=== PATIENT | female | born 1965 ===

== ENCOUNTER 2017-03-28 18:34 | Inpatient (IN) | payer MEDICAID ==
[2017-03-28] MEDS ORDERED: ONDANSETRON 4 MG/2 ML VIAL IVP STA (19:04)
[2017-03-28] MEDS ORDERED: SODIUM CHLORIDE 0.9% 1,000 ML IV ONE ×3 (19:04→20:46)
[2017-03-28] MEDS ORDERED: HYDROmorphone 1 MG/ML SYRINGE IVP STA ×3 (19:04→20:16)
--- NOTE | 2017-03-28 19:09 | ED Physician Documentation ---
History of Present Illness - Stated complaint Stated Complaint: LOW BACK/ABD PX - Chief complaint Chief Complaint: General - History obtained from History obtained from: Patient - History of Present Illness Timing: How many days ago (3) Pain level max: 10 Pain level now: 10 Improved by: nothing Worsened by: movement, palpation - Additonal information Additional information: Patient is a 51-year-old female who presents to the emergency department with abdominal pain, worsening for the past 2-3 days. Describes it as generalized abdominal pain with increased swelling, unable to eat today. Pain severely increased over the past 24 hours. Has no other past medical history other than a oophrectomy. No home medications Review of Systems Ten Systems: 10 systems reviewed and negative Constitutional: denies: Fever, Chills Ears: denies: Ear pain Nose: denies: Rhinorrhea / runny nose, Congestion Throat: denies: Sore throat Cardiac: denies: Chest pain / pressure Respiratory: denies: Cough GI: denies: Nausea, Vomiting, Diarrhea Skin: denies: Rash Musculoskeletal: reports: Back pain (L back pain). denies: Neck pain Neurologic: denies: Generalized weakness, Focal weakness PD PAST MEDICAL HISTORY - Past Medical History Past Medical History: No - Past Surgical History Past Surgical History: Yes Other past surgical history: oopherectomy - Present Medications Home Medications: Ambulatory Orders Medication Instructions Recorded Confirmed No Known Home Medications [No 03/28/17 03/28/17 Known Home Medications] - Allergies Allergies/Adverse Reactions: Allergies Allergy/AdvReac Type Severity Reaction Status Date / Time No Known Drug Allergies Allergy Verified 03/28/17 18:53 - Living Situation Living Situation: reports: With family Living Arrangement: reports: At home - Social History Does the pt smoke?: Yes Does the pt drink ETOH?: Yes Does the pt have substance abuse?: Yes Substance Use and Type: Marijuana PD ED PE NORMAL - Vitals Vital signs reviewed: Yes - General General: Alert and oriented X 3, Other (appears in severe pain) - HEENT HEENT: Moist mucous membranes - Neck Neck: Supple, no meningeal sign - Cardiac Cardiac: RRR, Strong equal pulses - Respiratory Respiratory: No respiratory distress, Clear bilaterally - Abdomen Abdomen: Other (distended, firm. peritoneal) - Back Back: No spinal TTP - Derm Derm: Warm and dry - Neuro Neuro: Alert and oriented X 3 Results - Vitals Vitals: Vital Signs - 24 hr 03/28/17 03/28/17 03/28/17 18:49 20:19 22:15 Temperature 36.5 C Heart Rate 84 85 Respiratory 21 19 Rate Blood Pressure 103/54 L 115/80 O2 Saturation 100 96 100 03/28/17 03/28/17 22:20 22:25 Temperature Heart Rate Respiratory Rate Blood Pressure O2 Saturation 100 100 Oxygen O2 Source Room air - Labs Labs: Laboratory Tests 03/28/17 03/28/17 03/28/17 19:10 19:10 19:10 WBC 9.3 RBC 4.00 L Hgb 11.6 L Hct 35.1 L MCV 87.8 MCH 29.1 MCHC 33.1 RDW 14.3 Plt Count 497 H MPV 8.8 Neut # 5.6 Lymph # 2.3 Dunn # 1.0 Eos # 0.3 Baso # 0.1 Absolute Nucleated RBC 0.00 Nucleated RBC % 0.0 Sodium 136 Potassium 3.8 Chloride 106 Carbon Dioxide 25 Anion Gap 5.0 L BUN 17 Creatinine 0.6 Estimated GFR (MDRD) 105 Glucose 114 H Calcium 8.8 Total Bilirubin 0.4 AST 16 ALT 11 Alkaline Phosphatase 59 Total Protein 7.5 Albumin 3.7 Globulin 3.8 Albumin/Globulin Ratio 1.0 Lipase 12 L CA 125 Antigen 50.8 H Blood Type Antibody Screen 03/28/17 20:00 WBC RBC Hgb Hct MCV MCH MCHC RDW Plt Count MPV Neut # Lymph # Dunn # Eos # Baso # Absolute Nucleated RBC Nucleated RBC % Sodium Potassium Chloride Carbon Dioxide Anion Gap BUN Creatinine Estimated GFR (MDRD) Glucose Calcium Total Bilirubin AST ALT Alkaline Phosphatase Total Protein Albumin Globulin Albumin/Globulin Ratio Lipase CA 125 Antigen Blood Type O POSITIVE Antibody Screen NEGATIVE - Rads (name of study) CT abd/pelvis Radiology: Prelim report reviewed, EMP read contemporaneously, See rad report ( Large well-defined 20.8 x 10.7 x 24.2 cm fluid collection with thin internal septations, likely left ovarian origin. Mild atherosclerotic calcification. Otherwise unremarkable abdomen and pelvis CT. ) PD MEDICAL DECISION MAKING - ED course Complexity details: reviewed results, re-evaluated patient, considered differential, d/w patient, d/w marketing sales consultant ([id number] - Dr. Bah.) ED course: Patient is a 51-year-old female who presents to the emergency department with a 3 day onset of abdominal pain and swelling, worsened suddenly today. She is peritoneal on exam and so surgery was consulted immediately upon arrival to the emergency department. A CT scan was performed which shows a large cystic mass, likely ovarian in origin. She originally said that she had both of her ovaries removed, but appears that a portion of the left ovary was left behind. Pain is well controlled, will take the patient to the operating room with Dr. Bah for further care. This document was made in part using voice recognition software. While efforts are made to proofread this document, sound alike and grammatical errors may occur. Departure - Departure Disposition: ED Transfer to [facility] Clinical Impression: Peritonitis (acute) generalized, Cyst Condition: Stable Discharge Date/Time: 03/28/17 20:50
[2017-03-28] MEDS ORDERED: IOPAMIDOL-300 100 ML VIAL ONE (19:19)
[2017-03-28 19:24] LABS: BASOPHILS # (AUTO) 0.1 10^3/uL (0.0-0.1); BASOPHILS % (AUTO) 1.1 %; EOSINOPHILS # (AUTO) 0.3 10^3/uL (0.0-0.7); EOSINOPHILS % (AUTO) 3.2 %; HGB - HEMOGLOBIN 11.6 g/dL (12.0-16.0); LYMPHOCYTES # (AUTO) 2.3 10^3/uL (1.5-3.5); LYMPHOCYTES % (AUTO) 24.6 %; MEAN CORPUSCULAR HEMOGLOBIN 29.1 pg (27.0-31.0); MEAN CORPUSCULAR HGB CONC 33.1 g/dL (32.0-36.0); MEAN CORPUSCULAR VOLUME 87.8 fL (81.0-99.0); MEAN PLATELET VOLUME 8.8 fL (7.9-10.8); MONOCYTES % (AUTO) 10.6 %; NEUTROPHILS # (AUTO) 5.6 10^3/uL (1.5-6.6); NEUTROPHILS % (AUTO) 60.5 %; PLT - PLATELET COUNT 497 10^3/uL (130-450); RED CELL DISTRIBUTION WIDTH 14.3 % (12.0-15.0); WHITE BLOOD COUNT 9.3 x10^3/uL (4.8-10.8)
[2017-03-28] MEDS ORDERED: metroNIDAZOLE 500 MG/100 ML 500 MG/100 ML BAG IV ONE (19:24)
[2017-03-28] MEDS ORDERED: PIPERACILLIN/TAZOBACTAM 4.5 GM in SODIUM CHLORIDE 0.9% MINIBAG 100 ML IV STA (19:24)
[2017-03-28 19:31] LABS: ALBUMIN 3.7 g/dL (3.2-5.5); BILIRUBIN,TOTAL 0.4 mg/dL (0.2-1.0); CALCIUM 8.8 mg/dL (8.5-10.3); CREATININE 0.6 mg/dL (0.4-1.0); TOTAL PROTEIN 7.5 g/dL (6.7-8.2)
--- NOTE | 2017-03-28 19:49 | CT Report ---
EXAM: CT ABDOMEN AND PELVIS EXAM DATE: 03/28/2017 07:38 PM. CLINICAL HISTORY: Abdomen pain and swelling for 3 days. COMPARISONS: None. TECHNIQUE: Routine helical CT imaging was performed through the abdomen and pelvis. IV contrast: 100 cc of Isovue-300. Enteric contrast: No. Reconstructions: Coronal and sagittal. In accordance with CT protocol optimization, one or more of the following dose reduction techniques w ere utilized for this exam: automated exposure control, adjustment of mA and/or KV based on patient s ize, or use of iterative reconstructive technique. FINDINGS: Lung Bases: Unremarkable. Liver: Normal. No masses. Gallbladder/Bile Ducts: Unremarkable. Spleen: Normal. Pancreas: Normal. Adrenal Glands: Normal. Kidneys: Normal. No masses or hydronephrosis. Peritoneal Cavity/Bowel: Normal. No free fluid, free air or adenopathy. No masses or acute inflammato ry process. Pelvic Organs: Large well-defined fluid collection on 20.8 x 10.7 x 24.2 cm with thin internal septat ions, likely left ovary in origin. Otherwise the reproductive organs and bladder appear unremarkable. Vasculature: No aortic aneurysm. Mild atherosclerotic calcification. Bones: No significant abnormality. Other: None. IMPRESSION: Large well-defined 20.8 x 10.7 x 24.2 cm fluid collection with thin internal septations, likely left ovarian origin. Mild atherosclerotic calcification. Otherwise unremarkable abdomen and pe lvis CT. [facility] Referring Provider Line: [phone] SITE ID: [id number]
[2017-03-28] MEDS ORDERED: IOPAMIDOL-300 100 ML VIAL IVP ONE (19:59)
[2017-03-28] MEDS ORDERED: HYDROmorphone 1 MG/ML SYRINGE ONE (20:24)
[2017-03-28] MEDS ORDERED: PHENYLEPHRINE 50 MG/5 ML VIAL IV ONE (21:15)
[2017-03-28] MEDS ORDERED: MIDAZOLAM 2 MG/2 ML VIAL IVP ONE (21:15)
[2017-03-28] MEDS ORDERED: LIDOCAINE-MPF 2% 5 ML VIAL IM ONE (21:15)
[2017-03-28] MEDS ORDERED: PROPOFOL 200 MG/20 ML VIAL IVP ONE (21:15)
[2017-03-28] MEDS ORDERED: fentaNYL 100 MCG/2 ML VIAL IVP ONE (21:15)
[2017-03-28] MEDS ORDERED: ROCURONIUM 50 MG/5 ML VIAL IVP ONE (21:15)
[2017-03-28] MEDS ORDERED: GLYCOPYRROLATE 1 MG/5 ML VIAL IVP ONE (21:15)
[2017-03-28] MEDS ORDERED: ONDANSETRON 4 MG/2 ML VIAL IVP ONE (21:15)
[2017-03-28] MEDS ORDERED: DEXAMETHASONE 4 MG/ML VIAL IVP ONE (21:15)
[2017-03-28] MEDS ORDERED: NEOSTIGMINE 1 MG/1 ML 10 ML MDV IVP ONE (21:15)
[2017-03-28] MEDS ORDERED: BUPIVACAINE 0.5% PF 30 ML VIAL SUBQ ONE (21:34)
[2017-03-28] MEDS ORDERED: LACTATED RINGERS 1,000 ML IV ONE ×2 (21:45→22:14)
--- NOTE | 2017-03-28 22:11 | CONSULTATION NOTE ---
Referring Provider Name of Referring Provider:: Momo Camara Consult Date: 03/28/17 Chief Complaint - Chief Complaint Chief Complaint: Dr. Shaan Manzano called me urgently to evaluate this 51-year- old female w History of Present Illness - Admitted From Admitted From:: Emergency department - History Obtained From Records Reviewed: Yes History obtained from: Patient and Exam Limitations: The degree of pain the patient is in History - Past Medical History Cardiovascular: reports: None Respiratory: reports: None, Other (Patient is a smoker and is likely to have some COPD) Neuro: reports: None Endocrine/Autoimmune: reports: None GI: reports: None FIRE CONTROL OFFICER: reports: None (Menopause 3 years ago) : reports: None HEENT: reports: None Psych: reports: None Musculoskeletal: reports: None Derm: reports: None - Past Surgical History /FIRE CONTROL OFFICER: reports: Oophrectomy Other past surgical history: oopherectomy - Family & Social History Living arrangement: At home Living Situation: With family Meds/Allgy - Home Medications Home Medications: Ambulatory Orders Medication Instructions Recorded Confirmed No Known Home Medications [No 03/28/17 03/28/17 Known Home Medications] - Allergies Allergies/Adverse Reactions: Allergies Allergy/AdvReac Type Severity Reaction Status Date / Time No Known Drug Allergies Allergy Verified 03/28/17 18:53 Review of Systems - Constitutional Constitutional: denies: Fatigue, Fever, Chills, Malaise, Weight gain, Weight loss - Eyes Eyes: denies: Vision loss - Ears, Nose & Throat Ears, Nose & Throat: denies: Hearing loss, Hearing aids, Sore throat - Cardiovascular Cariovascular: denies: Irregular heart rate, Chest pain - Respiratory Respiratory: reports: Cough. denies: Hemoptysis - Gastrointestinal Gastrointestinal: reports: Abdominal pain, Abdominal distention, Constipation, Change in bowel habits. denies: Black stools, Bloody stools, Yony blood emesis - Genitourinary Genitourinary: denies: Incontinence - Musculoskeletal Musculoskeletal: denies: Muscle pain, Back pain - Integumentary Integumentary: denies: Rash - Neurological Neurological: denies: General weakness, Focal weakness, Headache, Dizziness - Psychiatric Psychiatric: denies: Depression, Anxiety, Suicidal, Delusions, Hallucinations, Homicidal Exam - Vital Signs Reviewed Vital Signs: Yes Vital Signs: Vital Signs x48h Temp Pulse Resp BP Pulse Ox 03/28/17 20:19 85 19 115/80 96 03/28/17 18:49 36.5 C 84 21 103/54 L 100 - Physical Exam General Appearance: positive: Moderate distress (Due to abdominal pain), Severe distress Eyes Bilateral: positive: No lid inflammation, Conjunctivae nml, No scleral icterus Neck: positive: Trachea midline Respiratory: positive: Chest non-tender, No respiratory distress, Breath sounds nml Cardiovascular: positive: Regular rate & rhythm, Tachycardia Abdomen: positive: Tenderness (Severe and throughout), Other (Market distention going from the pelvis to shelter between the umbilicus and the xiphoid process, firm to touch) Skin: positive: Pallor Extremities: positive: Non-tender, Nml appearance Neurologic/Psychiatric: positive: Oriented x3 Conclusion/Plan - Diagnosis Diagnosis: Extraordinarily large abdominal mass likely to be ovarian after review of CT scan and labs - Plan Plan: Exploratory laparotomy with removal of large abdominal mass. I explained to the patient and her that this mass likely represents an ovarian mass and she indicated that she would like to have it removed. In fact, she stated and her confirmed that if anything else needed to be removed at that time it should be removed at that time. A CA 125 has been ordered as large ovarian cysts in postmenopausal women have increased risk for malignancy. Depending on its appearance may intraoperatively consult Dr. Keyla Warner for her expertise. The patient will be made n.p.o., receive preoperative antibiotics, have teds and Venodyne's placed, have at least one running IV, and be typed and screened just in case there is an issue with bleeding. 45 minutes of [id number] time was spent with the patient and in coordinating her care as well as completing this paperwork. - Lab Results Lab results reviewed: Yes Fish Bones: 03/28/17 19:10 03/28/17 19:10 - Diagnostic Imaging Results Diagnostic Imaging Results: positive: Prelim report reviewed, Final report reviewed, Read independently
--- NOTE | 2017-03-28 22:15 | OPERATIVE REPORT ---
Operative Report - Other Other Information/Narrative: Date of Operation: 03/28/2017 Surgeon: Keyla Velarde DO FACOG Co-Surgeon: Jairo Bah MD [facility] Machine Shorthand Reporter: Devon Valencia CRNA Anesthesia: GET Pre-op Dx: Pelvic mass Post-op Dx: Left ovarian mass Procedure: 1. Exploratory laparotomy 2. Excision of left ovarian cyst 3. Abdominal Hysterectomy Findings: Enlarged left ovarian mass. Normal uterus. Surgically absent right ovary and fallopian tube. Specimens: 1. Pelvic washings 2. Left ovarian mass 3. Uterus Drains: Thayer catheter to gravity EBL: <10 mL Complications: None Dictation: [id number]
--- NOTE | 2017-03-28 22:22 | OPERATIVE REPORT ---
Operative Report - General Admit Date: 03/28/17 Planned Procedure: Exploratory laparotomy with excision of large abdominal mass Pre-Op Diagnosis: Large abdominal mass (likely cystic) Procedure Performed: Exploratory laparotomy with left ovarian cystectomy (extremely large3.8 kg), intraoperative consultation of Dr. Keyla Warner, peritoneal washings, hysterectomy (performed by Dr. Keyla Warner and reported separately) Post Op Diagnosis: Extremely large left ovarian cyst in a postmenopausal woman - Procedure Note Primary Surgeon: Jairo Bah MD Secondary Surgeon: Keyla Nieto MD Anesthesia Provider: Devon Valencia Anesthesia Technique: General ET tube, Local (30 mL of half percent Marcaine) Pathology: Large left ovarian cyst and uterus sent for pathologic evaluation Peritoneal washings sent for pathologic evaluation IV Fluids (mL): 1,500 Estimated Blood Loss (mL): 150 Urine Output (mL): 150 - Other Other Information/Narrative: OPERATIVE DESCRIPTION/REPORT: After verbal and written informed consent was obtained detailing the risks of infection, bleeding requiring transfusion with its risks, nerve injury, and , and after I met with the patient confirming the surgery and the site of the surgery, the patient was brought to the operative suite and placed supine on the operating table. Great care was taken to avoid pressure points to prevent pressure necrosis or nerve injury. Monitoring devices were applied along with TEDs and pneumatic compressive stockings (to prevent DVT). The patient received preoperative antibiotics for surgical prophylaxis. Devon Valencia sedated and anesthetized the patient for the entire procedure. The patient was prepped and draped in the usual sterile manner. With the patient draped my initials were clearly visible. A "time in" then confirmed that the patient was identified with 3 identifiers (name, date and medical record number), the history and physical was in the chart, the signed consent confirming the procedure was in the chart, the patient was in the correct position, the aforementioned prophylactic measures were in place or given, we had the correct personnel and equipment to complete the procedure and that anesthesia, surgery and nursing were given an opportunity to express any concerns. With the agreement of everyone in the room, we proceeded with the operation. A generous midline incision was made using a 15 blade scalpel starting just above the pubic tubercle and ending fpc between the umbilicus and the xiphoid. Dissection down to the linea alba was completed using Bovie electrocautery. The linea alba was carefully incised using a scalpel and the linea alba was grasped. The peritoneum was similarly in size getting entry into the abdomen without incident. This incision was then lengthened to the length of the skin incision using Bovie electrocautery taking care to use my hand to protect the bowel as well as a cystic structure found just beneath the incision. Please note the cyst was markedly enlarged. The length of the incision was necessary in order to remove the cyst without rupturing it. Peritoneal washings were done and sent fro cytology. With gentle to and fro motion the cyst was delivered from the abdomen and was originating from the left ovary. The pedicle to the left ovary and the left fallopian tube were transected using serial application of the Ligasure. There was no bleeding from the transection line. The mass was then delivered from the operative field and weighed (3.8 kg). I had called Dr. Keyla Warner for an intra-operative consultation due to the possibility of malignancy and had discussed the possibility of a hysterectomy with the patient and her and I instructed by them to "do whatever was necessary." The case was then turned over to Dr. Warner for the performance of the hysterectomy and I assisted her (this should be reported separately by her). Once the hysterectomy was completed, the abdomen was examined and the liver, gallbladder, stomach, spleen, colon were all normal with the exception that they had been displaced laterally and superiorly by this large mass. Even the stool within her colon had been deformed. The peritoneum was copiously irrigated with warm sterile saline. The fascia was approximated using a running 0 looped PDS suture starting superiorly and inferiorly and running to meet in the middle. The knot was tied and dunked. The subcutaneous tissues were loosely approximated using 2-0 Vicryl suture. The skin was approximated using a running 4-0 Monocryl subcuticular suture. At this point a time out was performed that confirmed that all the counts were correct, the procedure that was performed, the blood loss, the IV fluids administered, and the patients condition. The prep was washed off and Mastisol and steristrips were applied. Having tolerated the procedure well, the patient was subsequently extubated and taken to recovery room in good and stable condition. [employer] disclaimer: This document was created in part using voice recognition technology. Because of the inherent limitations of the system ([employer]'s [employer] user manual states that the licensee understands that speech recognition is a statistical process and that recognition errors are inherent in the process), occasional same sounding word substitutions and grammatical errors do occur and persist despite proofreading. Please read this document for context.
[2017-03-28] MEDS: ACETAMINOPHEN 1,000 MG/100 ML 100 ML IV SCH (23:43)
[2017-03-28] MEDS: D5NS W/20 MEQ KCL 1,000 ML IV SCH (23:43)
[2017-03-29] MEDS: HYDROmorphone 1 MG/ML SYRINGE IVP PRN ×11 (02:40→23:52)
[2017-03-29] MEDS: ACETAMINOPHEN 1,000 MG/100 ML 100 ML IV SCH ×4 (05:17→21:58)
[2017-03-29 05:22] LABS: BASOPHILS % (AUTO) 0.2 %; HGB - HEMOGLOBIN 11.4 g/dL (12.0-16.0); LYMPHOCYTES # (AUTO) 0.8 10^3/uL (1.5-3.5); LYMPHOCYTES % (AUTO) 5.9 %; MEAN CORPUSCULAR HEMOGLOBIN 29.1 pg (27.0-31.0); MEAN CORPUSCULAR HGB CONC 32.4 g/dL (32.0-36.0); MEAN CORPUSCULAR VOLUME 89.9 fL (81.0-99.0); MEAN PLATELET VOLUME 8.7 fL (7.9-10.8); MONOCYTES # (AUTO) 0.5 10^3/uL (0.0-1.0); MONOCYTES % (AUTO) 3.5 %; NEUTROPHILS # (AUTO) 11.7 10^3/uL (1.5-6.6); NEUTROPHILS % (AUTO) 90.4 %; PLT - PLATELET COUNT 457 10^3/uL (130-450); RED CELL DISTRIBUTION WIDTH 14.8 % (12.0-15.0); WHITE BLOOD COUNT 12.9 x10^3/uL (4.8-10.8)
[2017-03-29 05:32] LABS: ALBUMIN 3.3 g/dL (3.2-5.5); ALKALINE PHOSPHATASE 58 IU/L (42-121); ALT ALANINE AMINOTRANSFERASE < 10 IU/L (10-60); AST ASPARTATE AMINOTRANSFERASE 15 IU/L (10-42); BILIRUBIN,TOTAL 0.3 mg/dL (0.2-1.0); BUN - BLOOD UREA NITROGEN 10 mg/dL (6-20); CARBON DIOXIDE - CO2 23 mmol/L (21-32); CHLORIDE 106 mmol/L (101-111); CREATININE 0.6 mg/dL (0.4-1.0); GFR - MDRD 105 (>89); GLUCOSE 165 mg/dL (70-100); SODIUM 134 mmol/L (135-145); TOTAL PROTEIN 6.5 g/dL (6.7-8.2)
[2017-03-29] MEDS: SODIUM CHLORIDE FLUSH 0.9% 10 ML SYRINGE IVP SCH ×3 (06:47→21:58)
[2017-03-29] MEDS: PANTOPRAZOLE 40 MG VIAL IVP SCH (06:47)
--- NOTE | 2017-03-29 08:10 | PROVIDER PROGRESS NOTE ---
Subjective - Prog Note Date Prog Note Date: 03/29/17 Prog Note Time: 08:07 - Subjective Subjective: Patient sleeping in bed. Thayer catheter in-situ. Objective - Vital Signs/Intake & Output Vital Signs: Vital Signs x48h Temp Pulse Resp BP Pulse Ox 03/29/17 07:59 97.7 F 86 18 87/42 L 95 03/29/17 05:13 97.7 F 86 18 92/65 96 03/29/17 02:26 97.7 F 63 16 105/66 95 03/29/17 00:15 97.3 F L 63 16 125/76 92 Intake & Output: Intake & Output 03/26/17 03/27/17 03/28/17 03/29/17 23:59 23:59 23:59 23:59 Intake Total 2300 838.333 Output Total 900 Balance 2300 -61.667 - Lab Results Fish Bones: 03/29/17 05:06 03/29/17 05:06 Other Labs: Lab Results x24hrs 03/29/17 03/29/17 Range/Units 05:06 05:06 WBC 12.9 H (4.8-10.8) x10^3/uL RBC 3.90 L (4.20-5.40) 10^6/uL Hgb 11.4 L (12.0-16.0) g/dL Hct 35.1 L (37.0-47.0) % MCV 89.9 (81.0-99.0) fL MCH 29.1 (27.0-31.0) pg MCHC 32.4 (32.0-36.0) g/dL RDW 14.8 (12.0-15.0) % Plt Count 457 H (130-450) 10^3/uL MPV 8.7 (7.9-10.8) fL Neut # 11.7 H (1.5-6.6) 10^3/uL Lymph # 0.8 L (1.5-3.5) 10^3/uL Lamb # 0.5 (0.0-1.0) 10^3/uL Eos # 0.0 (0.0-0.7) 10^3/uL Baso # 0.0 (0.0-0.1) 10^3/uL Absolute Nucleated RBC 0.00 x10^3/uL Nucleated RBC % 0.0 /100WBC Sodium 134 L (135-145) mmol/L Potassium 4.5 (3.5-5.0) mmol/L Chloride 106 (101-111) mmol/L Carbon Dioxide 23 (21-32) mmol/L Anion Gap 5.0 L (6-13) BUN 10 (6-20) mg/dL Creatinine 0.6 (0.4-1.0) mg/dL Estimated GFR (MDRD) 105 (>89) Glucose 165 H (70-100) mg/dL Calcium 8.0 L (8.5-10.3) mg/dL Total Bilirubin 0.3 (0.2-1.0) mg/dL AST 15 (10-42) IU/L ALT < 10 L (10-60) IU/L Alkaline Phosphatase 58 (42-121) IU/L Total Protein 6.5 L (6.7-8.2) g/dL Albumin 3.3 (3.2-5.5) g/dL Globulin 3.2 (2.1-4.2) g/dL Albumin/Globulin Ratio 1.0 (1.0-2.2) Assessment/Plan - Problem List (1) S/P hysterectomy with oophorectomy Impression: 51 yo female, S/p exploratory laparotomy, left salpgingo-oophorectomy and hysterectomy, POD #1 Will let patient sleep given late surgery Will return later this PM to see Lolis and explain the hysterectomy
[2017-03-29] MEDS: D5NS W/20 MEQ KCL 1,000 ML IV SCH ×2 (09:55→20:37)
[2017-03-29] MEDS: ONDANSETRON 4 MG/2 ML VIAL IVP PRN (11:13)
--- NOTE | 2017-03-29 13:12 | PROVIDER PROGRESS NOTE ---
Subjective - Prog Note Date Prog Note Date: 03/29/17 Prog Note Time: 13:08 - Subjective Pt reports feeling: Improved Subjective: Patient sitting in bed. Looks mildly uncomfortable. Son, daughter and present in the room. Tolerating fluids so far. Objective - Vital Signs/Intake & Output Reviewed Vital Signs: Yes Vital Signs: Vital Signs x48h Temp Pulse Resp BP Pulse Ox 03/29/17 07:59 97.7 F 86 18 87/42 L 95 03/29/17 05:13 97.7 F 86 18 92/65 96 Intake & Output: Intake & Output 03/26/17 03/27/17 03/28/17 03/29/17 23:59 23:59 23:59 23:59 Intake Total 2300 1146.666 Output Total 900 Balance 2300 246.666 - Objective General Appearance: positive: No acute distress Eyes Bilateral: positive: Normal inspection Abdomen: positive: Other (Appropriate tenderness) Extremities: positive: Other (SCD's on) - Lab Results Fish Bones: 03/29/17 05:06 03/29/17 05:06 Other Labs: Lab Results x24hrs 03/29/17 03/29/17 Range/Units 05:06 05:06 WBC 12.9 H (4.8-10.8) x10^3/uL RBC 3.90 L (4.20-5.40) 10^6/uL Hgb 11.4 L (12.0-16.0) g/dL Hct 35.1 L (37.0-47.0) % MCV 89.9 (81.0-99.0) fL MCH 29.1 (27.0-31.0) pg MCHC 32.4 (32.0-36.0) g/dL RDW 14.8 (12.0-15.0) % Plt Count 457 H (130-450) 10^3/uL MPV 8.7 (7.9-10.8) fL Neut # 11.7 H (1.5-6.6) 10^3/uL Lymph # 0.8 L (1.5-3.5) 10^3/uL [facility] # 0.5 (0.0-1.0) 10^3/uL Eos # 0.0 (0.0-0.7) 10^3/uL Baso # 0.0 (0.0-0.1) 10^3/uL Absolute Nucleated RBC 0.00 x10^3/uL Nucleated RBC % 0.0 /100WBC Sodium 134 L (135-145) mmol/L Potassium 4.5 (3.5-5.0) mmol/L Chloride 106 (101-111) mmol/L Carbon Dioxide 23 (21-32) mmol/L Anion Gap 5.0 L (6-13) BUN 10 (6-20) mg/dL Creatinine 0.6 (0.4-1.0) mg/dL Estimated GFR (MDRD) 105 (>89) Glucose 165 H (70-100) mg/dL Calcium 8.0 L (8.5-10.3) mg/dL Total Bilirubin 0.3 (0.2-1.0) mg/dL AST 15 (10-42) IU/L ALT < 10 L (10-60) IU/L Alkaline Phosphatase 58 (42-121) IU/L Total Protein 6.5 L (6.7-8.2) g/dL Albumin 3.3 (3.2-5.5) g/dL Globulin 3.2 (2.1-4.2) g/dL Albumin/Globulin Ratio 1.0 (1.0-2.2) Assessment/Plan - Problem List (1) S/P hysterectomy with oophorectomy Impression: 51 yo female, S/p exploratory laparotomy, left salpingo-oophorectomy and hysterectomy 03/28/2017 D/W the patient tumor grossly appears benign, borderline at worst. Will have to await results of pathology. Due to abnormal ovary, performed hysterectomy at the time of surgery to minimize future surgery. Told patient I would like to see her at [facility] in 2 weeks for follow up. Appreciate opportunity to help with the patient's care. Will follow up as needed.
--- NOTE | 2017-03-29 17:38 | PROVIDER PROGRESS NOTE ---
Subjective - General Admit Date: 03/28/17 Procedure Date: 03/28/17 Post Op Days: 1 Procedure Performed: Very large LEFT ovarian cystectomy (Hassapis) and hysterectomy (Chin) - Review of Systems Wound/Incisions: positive: Dressing dry and intact General: positive: No symptoms HEENT: positive: No symptoms Pulmonary: positive: No symptoms Cardiovascular: positive: No symptoms Gastrointestinal: positive: Abdominal pain Genitourinary: positive: No symptoms (Thayer in place.) Musculoskeletal: positive: No symptoms Skin: positive: No symptoms Psychiatric: positive: No symptoms Objective - Patient Data Reviewed Vital Signs: Yes Vital Signs: Vital Signs x48h Temp Pulse Resp BP Pulse Ox 03/29/17 15:43 36.6 C 61 17 98/54 L 94 Weight: Weight 03/27/17 03/28/17 03/29/17 23:59 23:59 23:59 Weight (kg) 60.5 kg Intake & Output: Intake and Output Totals x24h 03/27/17 03/28/17 03/29/17 23:59 23:59 23:59 Intake Total 2300 1346.666 Output Total 1200 Balance 2300 146.666 - Lab Results Lab Results: 03/29/17 05:06 03/29/17 05:06 Other Lab Results: Lab Results x24hrs 03/29/17 03/29/17 Range/Units 05:06 05:06 WBC 12.9 H (4.8-10.8) x10^3/uL RBC 3.90 L (4.20-5.40) 10^6/uL Hgb 11.4 L (12.0-16.0) g/dL Hct 35.1 L (37.0-47.0) % MCV 89.9 (81.0-99.0) fL MCH 29.1 (27.0-31.0) pg MCHC 32.4 (32.0-36.0) g/dL RDW 14.8 (12.0-15.0) % Plt Count 457 H (130-450) 10^3/uL MPV 8.7 (7.9-10.8) fL Neut # 11.7 H (1.5-6.6) 10^3/uL Lymph # 0.8 L (1.5-3.5) 10^3/uL Bowie # 0.5 (0.0-1.0) 10^3/uL Eos # 0.0 (0.0-0.7) 10^3/uL Baso # 0.0 (0.0-0.1) 10^3/uL Absolute Nucleated RBC 0.00 x10^3/uL Nucleated RBC % 0.0 /100WBC Sodium 134 L (135-145) mmol/L Potassium 4.5 (3.5-5.0) mmol/L Chloride 106 (101-111) mmol/L Carbon Dioxide 23 (21-32) mmol/L Anion Gap 5.0 L (6-13) BUN 10 (6-20) mg/dL Creatinine 0.6 (0.4-1.0) mg/dL Estimated GFR (MDRD) 105 (>89) Glucose 165 H (70-100) mg/dL Calcium 8.0 L (8.5-10.3) mg/dL Total Bilirubin 0.3 (0.2-1.0) mg/dL AST 15 (10-42) IU/L ALT < 10 L (10-60) IU/L Alkaline Phosphatase 58 (42-121) IU/L Total Protein 6.5 L (6.7-8.2) g/dL Albumin 3.3 (3.2-5.5) g/dL Globulin 3.2 (2.1-4.2) g/dL Albumin/Globulin Ratio 1.0 (1.0-2.2) - Current Medications Current Medications: Current Medications Generic Name Dose Route Start Last Admin Trade Name Freq PRN Reason Stop Dose Admin Hydromorphone HCl 0.5 mg 03/28/17 22:27 03/29/17 16:07 Dilaudid Inj Syringe IVP 0.5 mg Q1H PRN Administration PAIN Potassium Chloride/Dextrose/Sod Cl 1,000 mls @ 100 mls/hr 03/28/17 23:00 02/03 09:55 IV 100 mls/hr .Q10H COLE Administration Acetaminophen 100 mls @ 400 mls/hr 03/28/17 23:00 03/29/17 16:22 Ofirmev IV Infused Q6H COLE Infusion Ondansetron HCl 4 mg 03/28/17 22:27 03/29/17 11:13 Zofran Inj IVP 4 mg Q6H PRN Administration Nausea / Vomiting Pantoprazole Sodium 40 mg 03/29/17 07:00 03/29/17 06:47 Protonix IVP 40 mg QDAC COLE Administration Sodium Chloride 10 ml 03/29/17 06:00 03/29/17 14:27 Normal Saline Flush 0.9% IVP Not Given Q8HR COLE - Physical Exam Wound/Incisions: positive: Dressing dry and intact General Appearance: positive: No acute distress (Sleeping now that I saw her again. Earlier with mild distress appropriate for POD #1.) Eyes Bilateral: positive: No lid inflammation, Conjunctivae nml, No scleral icterus Neck: positive: Trachea midline Respiratory: positive: Breath sounds nml Cardiovascular: positive: Regular rate & rhythm Abdomen: positive: Nml bowel sounds Skin: positive: Color nml Extremities: positive: Nml appearance Neurologic/Psychiatric: positive: Oriented x3 Impression/Plan - Problem List Problem List: POD 1 s/p extremely large LEFT ovarian cystectomy and hysterectomy. First I wish to thank Dr. Warner very much for the intra-operative consultation and appropriate hysterectomy. Notably this had been discussed with the patient and preoperatively. Her CA125 is slightly elevated at just over 50 but I do not feel that this cyst represented malignancy. Awaiting final pathology. From a surgical standpoint awaiting bowel function to return but fed the patient as she is hungry. Told to "pick and choose tray." Thayer to come out. Once bowel function returns can be discharged home.
[2017-03-30] MEDS: HYDROmorphone 1 MG/ML SYRINGE IVP PRN ×6 (02:33→21:04)
[2017-03-30] MEDS: ACETAMINOPHEN 1,000 MG/100 ML 100 ML IV SCH ×4 (04:43→22:48)
[2017-03-30] MEDS: BENZOCAINE/MENTHOL LOZENGE MM PRN ×2 (05:55→08:16)
[2017-03-30] MEDS: PANTOPRAZOLE 40 MG VIAL IVP SCH (05:56)
[2017-03-30] MEDS: SODIUM CHLORIDE FLUSH 0.9% 10 ML SYRINGE IVP SCH ×3 (05:56→19:27)
[2017-03-30] MEDS: SODIUM CHLORIDE FLUSH 0.9% 10 ML SYRINGE IVP PRN (06:00)
[2017-03-30] MEDS: D5NS W/20 MEQ KCL 1,000 ML IV SCH ×2 (06:12→16:06)
--- NOTE | 2017-03-30 07:36 | PROVIDER PROGRESS NOTE ---
Subjective - General Admit Date: 03/28/17 Procedure Date: 03/28/17 Post Op Days: 2 Procedure Performed: Very large LEFT ovarian cystectomy (Hassapis) and hysterectomy (Chin) - Review of Systems Wound/Incisions: positive: Dressing dry and intact General: positive: No symptoms HEENT: positive: No symptoms Pulmonary: positive: No symptoms Cardiovascular: positive: No symptoms Gastrointestinal: positive: Abdominal pain (Spasms from time to time.) Genitourinary: positive: No symptoms (Thayer in place.) Musculoskeletal: positive: No symptoms Skin: positive: No symptoms Psychiatric: positive: No symptoms Objective - Patient Data Reviewed Vital Signs: Yes Vital Signs: Vital Signs x48h Temp Pulse Resp BP Pulse Ox 03/29/17 23:52 36.2 C L 76 16 95/46 L 94 Weight: Weight 03/28/17 03/29/17 03/30/17 23:59 23:59 23:59 Weight (kg) 60.5 kg Intake & Output: Intake and Output Totals x24h 03/28/17 03/29/17 03/30/17 23:59 23:59 23:59 Intake Total 2300 2926.666 1035.000 Output Total 1350 150 Balance 2300 1576.666 885.000 - Lab Results Lab Results: 03/29/17 05:06 03/29/17 05:06 - Current Medications Current Medications: Current Medications Generic Name Dose Route Start Last Admin Trade Name Freq PRN Reason Stop Dose Admin Hydromorphone HCl 0.5 mg 03/28/17 22:27 03/30/17 04:44 Dilaudid Inj Syringe IVP 0.5 mg Q1H PRN Administration PAIN Potassium Chloride/Dextrose/Sod Cl 1,000 mls @ 100 mls/hr 03/28/17 23:00 03/05 06:12 IV 100 mls/hr .Q10H COLE Administration Acetaminophen 100 mls @ 400 mls/hr 03/28/17 23:00 03/30/17 04:58 Ofirmev IV Infused Q6H COLE Infusion Ondansetron HCl 4 mg 03/28/17 22:27 03/29/17 11:13 Zofran Inj IVP 4 mg Q6H PRN Administration Nausea / Vomiting Pantoprazole Sodium 40 mg 03/29/17 07:00 03/30/17 05:56 Protonix IVP 40 mg QDAC COLE Administration Sodium Chloride 10 ml 03/29/17 06:00 03/30/17 05:56 Normal Saline Flush 0.9% IVP 10 ml Q8HR COLE Administration Sodium Chloride 10 ml 03/28/17 22:27 03/30/17 06:00 Normal Saline Flush 0.9% IVP 10 ml PRN PRN Administration NEEDED PER PROVIDER ORDERS Throat Lozenges 1 lozenge 03/30/17 04:52 03/30/17 05:55 Cepacol MM 1 lozenge Q2HR PRN Administration Throat pain - Physical Exam Wound/Incisions: positive: Dressing dry and intact General Appearance: positive: Mild distress (Sitting in chair with ice pack on abdomen.) Eyes Bilateral: positive: No lid inflammation, Conjunctivae nml, No scleral icterus Neck: positive: Trachea midline Respiratory: positive: Chest non-tender, Wheezes (On the right - clear on the left.) Cardiovascular: positive: Regular rate & rhythm Abdomen: positive: Tenderness (Incisional.), Abnml bowel sounds (Definitiely decreased.) Skin: positive: Color nml Extremities: positive: Non-tender, Nml appearance Neurologic/Psychiatric: positive: Oriented x3 Impression/Plan - Problem List Problem List: D2 s/p enormous L ovarian cystectomy and hysterectomy. Patient tolerating diet with minimal bowel sounds. No BM or flatus yet. I am very concerned about a postoperative ileus occurring in her. Ambulation is going to be de la fuente. Will order po pain meds. Awaiting pathology. Mildly concerned about elevated CA125. Completely appreciate Dr. Warner's involvement in this case. I have left the dressing on as it has an antibacterial effect. Remove in the next 48-72 hours. Typically left on far as many as 5 days. Okay to shower.
[2017-03-30] MEDS: oxyCODONE 5 MG TABLET PO PRN ×4 (08:14→23:58)
[2017-03-30] MEDS: ONDANSETRON 4 MG/2 ML VIAL IVP PRN (10:57)
[2017-03-31] MEDS: D5NS W/20 MEQ KCL 1,000 ML IV SCH ×2 (02:25→12:07)
[2017-03-31] MEDS: oxyCODONE 5 MG TABLET PO PRN ×2 (04:17→15:47)
[2017-03-31] MEDS: HYDROmorphone 1 MG/ML SYRINGE IVP PRN ×2 (04:17→12:15)
[2017-03-31] MEDS: ACETAMINOPHEN 1,000 MG/100 ML 100 ML IV SCH ×2 (05:09→11:30)
[2017-03-31] MEDS: SODIUM CHLORIDE FLUSH 0.9% 10 ML SYRINGE IVP SCH ×2 (08:09→08:38)
[2017-03-31] MEDS: PANTOPRAZOLE 40 MG VIAL IVP SCH (08:38)
[2017-03-31] MEDS ORDERED: MAGNESIUM HYDROXIDE 2,400 MG/30 ML UDC PO SCH (11:01)
[2017-03-31] MEDS: SODIUM CHLORIDE FLUSH 0.9% 10 ML SYRINGE IVP PRN (12:15)
[2017-03-31 12:47] LABS: BASOPHILS # (AUTO) 0.2 10^3/uL (0.0-0.1); BASOPHILS % (AUTO) 1.5 %; EOSINOPHILS # (AUTO) 0.4 10^3/uL (0.0-0.7); EOSINOPHILS % (AUTO) 3.2 %; HGB - HEMOGLOBIN 10.3 g/dL (12.0-16.0); LYMPHOCYTES # (AUTO) 2.4 10^3/uL (1.5-3.5); LYMPHOCYTES % (AUTO) 21.3 %; MEAN CORPUSCULAR HEMOGLOBIN 29.5 pg (27.0-31.0); MEAN CORPUSCULAR HGB CONC 33.8 g/dL (32.0-36.0); MEAN CORPUSCULAR VOLUME 87.3 fL (81.0-99.0); MEAN PLATELET VOLUME 9.3 fL (7.9-10.8); MONOCYTES # (AUTO) 1.2 10^3/uL (0.0-1.0); MONOCYTES % (AUTO) 11.1 %; NEUTROPHILS % (AUTO) 62.9 %; PLT - PLATELET COUNT 430 10^3/uL (130-450); RED BLOOD COUNT 3.47 10^6/uL (4.20-5.40); RED CELL DISTRIBUTION WIDTH 14.5 % (12.0-15.0); WHITE BLOOD COUNT 11.2 x10^3/uL (4.8-10.8)
[2017-03-31 13:37] VITALS: BP 108/63
--- NOTE | 2017-03-31 14:15 | Discharge Plan ---
Discharge Plan Disposition: Home, Self Care Condition: Stable Prescriptions: oxyCODONE/ACET 5/325 [Percocet 5 mg/325 mg] 1 - 2 tab PO Q4H #40 tablet Diet: Regular Activity Restrictions: no lifting over 15 lbs Shower Restrictions: No Driving Restrictions: Yes Weight Bearing: Full Weight Additional Instructions or Follow Up instructions: colace 100mg 2 tablets by mouth twice a day No Smoking: If you smoke, Please STOP! Call for help. Follow-up with: Jairo Bah MD [Provider Admit Priv/Credential] - 04/05/17
--- NOTE | 2017-04-02 17:36 | OPERATIVE REPORT ---
DATE OF OPERATION: 03/28/2017 PREOPERATIVE DIAGNOSIS: Pelvic mass. POSTOPERATIVE DIAGNOSIS: Left ovarian mass. PROCEDURES 1. Open left ovarian cystectomy by Dr. Jairo Bah. 2. Abdominal hysterectomy by Keyla Velarde. SURGEON: Keyla Velarde DO, FACOG CO-SURGEON: Jairo Bah MD, FACS VICE PRESIDENT OF ENGINEERING: Devon Valencia CRNA ANESTHESIA: General endotracheal tube. FINDINGS: Enlarged left ovarian mass. Normal uterus. Surgically absent right ovary and fallopian tube. SPECIMENS 1. Left ovarian mass. 2. Uterus. DRAINS: Thayer catheter to gravity. ESTIMATED BLOOD LOSS: Less than 10 mL COMPLICATIONS: None. BRIEF HISTORY: I was called for intraoperative consult by Dr. Jairo Bah to see this patient. She had proceeded to [facility] Emergency Department with complaints of 3 days of abdominal pain. A CT was performed, which showed a significantly enlarged left ovarian mass. Because of the gynecological etiology of this disease process, Dr. Bah has kindly let me be involved in this patient's care. OPERATION IN DETAIL: The patient was identified, consented, and taken to the operating room where IV access was already placed. She was then given sequential compression devices, which were placed on lower extremities and turned on. The patient was then given satisfactory general endotracheal tube anesthesia as per Devon Valencia. A Thayer catheter was placed in her bladder. The patient was then prepped and draped in normal sterile fashion in the supine position. She was given piperacillin and tazobactam for infection prophylaxis. A timeout was performed, which correctly identified the patient and the procedure itself. A vertical skin incision was made starting approximately 2 fingerbreadths above the level of the pubic symphysis. This was done by Dr. Bah. The incision was then carried through the underlying layer of fascia. The fascia was then incised with electrocautery and extended vertically both sharply and with electrocautery. Entrance to the abdomen was made with electrocautery. This incision also was extended superiorly. After entrance into the abdomen was made , pelvic washings were obtained and sent off. The mass was gently delivered out of the abdomen and, with the LigaSure, the specimen was from the uterus at the level of the true ligament of the ovary and the fallopian tube. The specimen was then sent off the table. Given that the cyst had potential for malignancy, I recommend at this time that we proceed to a hysterectomy. The uterus itself was identified and then excised using the LigaSure. First the round ligaments were clamped, cut, and incised. The incision was then carried down inferiorly to incise the uterine arteries. The vesicouterine peritoneum was then incised, and then sharply and bluntly developed into a bladder flap. The uterosacral ligaments and then cardinal ligaments were then bilaterally clamped, cut, and incised using the LigaSure. The bladder flap was further developed. Incision was made on top of the cervix and then extended inferiorly until the vagina was visualized. The cervix was then excised from the vagina with Smith scissors. The vaginal cuff was then closed with interrupted stitches of 0 Vicryl. Hemostasis was noted. The rest of the abdomen and pelvis was inspected by Dr. Bah. The abdomen and pelvis were copiously irrigated and found to be hemostatically stable. The fascia was then closed with 2 running stitches of 0 looped PDS. The skin was then closed by Dr. Bah. The patient tolerated the procedure well and was taken back to the recovery room in stable condition. All sponge, lap, and needle counts were correct x2 as per nurse report. I will continue to see the patient in the hospital until she is discharged to home. It has been a pleasure to help take care of this patient with Dr. Bah. cc: MD Ian Banuelos MD TD: 03/29/2017 04:59 MTDD
--- NOTE | 2017-05-14 08:00 | DISCHARGE SUMMARY ---
Physician: Lewis Madison MD DATE OF ADMISSION: 03/28/2017 DATE OF DISCHARGE: 03/31/2017 REASON FOR ADMISSION: Abdominal pain. HISTORY OF PRESENT ILLNESS: The patient is a 51-year-old female who presents with acute onset of mid abdominal pain approximately 2 days prior to admission. She has had some loss of appetite, but no other findings. She came to the emergency room where a CT scan of the abdomen and pelvis was obtained. This showed a large fluid-filled structure measuring 24 x 21 cm in the area of the left ovary with no other abnormalities being seen. Of note, the patient has had a previous bilateral oophorectomy per history. PRINCIPAL DIAGNOSIS: Large left ovarian cyst. OTHER MEDICAL PROBLEMS: None. PROCEDURES: The patient underwent a left oophorectomy and cystectomy along with hysterectomy on 03/28/[address] Bah and Dr[address] Velarde. CONSULTATIONS: A gynecology consultation by Dr. Velarde was obtained. HOSPITAL COURSE: The patient was seen in the emergency room and admitted to the hospital. Gynecology consultation was obtained. Because of the large mass causing abdominal symptoms, it was recommend that the patient undergo an exploratory laparotomy and probable left oophorectomy with cystectomy and hysterectomy with the help of gynecology. She was then taken to surgery and underwent the above procedure. She tolerated it well and was transferred to the floor in stable condition. Over the next 3 days, she was up ambulating with her abdominal incisions clean without any evidence of infection. She was started on a liquid diet and had some mild nausea and so was not on an adequate oral intake until about 2 days postoperatively. On postoperative day #3, she had bowel function and was advanced to a regular diet which she tolerated. Her abdominal incisions were clean without any evidence of infection and so was discharged. DISCHARGE PROGRAM: The patient will be discharged home. Followup in surgery and gynecology clinic in 2 weeks. May ambulate with no heavy lifting. May shower. Percocet 1 -2 p.o. q.4-6h. p.r.n. pain. Would not recommend driving while on Percocet. In addition, would recommend stool softeners 100 mg 2 tablets twice a day as Percocet is constipating. TD: 05/14/2017 07:59 [facility]
== END 2017-03-31 15:50 | disposition home or self-care (01) | DRG 743 ==
LOC: ED 18:34 → MS2 19:45 → SDS 20:04 → UNDOADMIN 22:27 → MS2 22:27 → UNDODISIN 03-31 15:50
PROVIDERS: ADMIT Surgery; ATTEND Surgery
PROC: 0UT60ZZ Resection of Left Fallopian Tube, Open Approach (ICD-10-PCS; 2017-03-28)
PROC: 0UT50ZZ Resection of Right Fallopian Tube, Open Approach (ICD-10-PCS; 2017-03-28)
PROC: 0UT10ZZ Resection of Left Ovary, Open Approach (ICD-10-PCS; principal; 2017-03-28 08:30)
PROC: 0UT90ZZ Resection of Uterus, Open Approach (ICD-10-PCS; 2017-03-28 08:30)
DX: D27.1 Benign neoplasm of left ovary (principal); F17.210 Nicotine dependence, cigarettes, uncomplicated
CPT/HCPCS: 36415; 74177; 80053; 83690; 85025; 86304; 86850; 86900; 86901; 88108; 88305; 88307; 88311; 88341; 88342; 96374; 96375; 96376; 99283; 99285